=== PATIENT | male | born 1960 | race Caucasian/White ===

== ENCOUNTER 2023-04-06 19:37 | Emergency (ER) | payer BC ==
[2023-04-06] MEDS ORDERED: Bacitracin Oint 1 GM U/D Packet TOP ONE (20:23)
[2023-04-06] MEDS ORDERED: Diphtheria,Pertussis(Acell),Tetanus Vaccine 0.5 ML Syringe IM ONE (20:23)
[2023-04-06] MEDS ORDERED: Cephalexin 500 MG Cap PO ONE (20:26)
== END 2023-04-06 20:55 | disposition home or self-care (01) ==
LOC: DL.ED 19:37
DX: S60.455A Superficial foreign body of left ring finger, initial encounter (principal); Z88.2 Allergy status to sulfonamides; Z23 Encounter for immunization; W45.8XXA Other foreign body or object entering through skin, initial encounter
CPT/HCPCS: 90471; 90715; 99283-25; A9270-GY